=== PATIENT | male | born 1955 | race Caucasian/White ===

== ENCOUNTER 2023-09-20 16:14 | Inpatient (IN) | payer OTHER ==
[2023-09-20 17:34] LABS: Absolute Lymphocytes (CBC) 0.8 K/uL (0.7-4.9); Hematocrit 42.7 % (39.6-49.0); Lymphocytes % 11.4 % (15.3-44.8); MCV 88.1 fL (80-100); MPV 9.1 fL (7.6-11.3); Platelets 149 thou/uL (152-406); RBC Red Blood Cell Count 4.85 M/uL (4.33-5.43)
[2023-09-20 17:38] LABS: Protime INR 0.99
[2023-09-20] MEDS ORDERED: ACETAMINOPHEN 325 MG TABLET ONE (17:38)
[2023-09-20] MEDS ORDERED: LEVALBUTEROL 1.25 MG/3 ML NEB ONE (17:38)
[2023-09-20] MEDS ORDERED: LEVETIRACETAM 500 MG/5 ML VIAL IV ONE (17:38)
[2023-09-20] MEDS ORDERED: NA CHLORIDE 0.9% 1,000 ML ONE ×3 (17:39→20:39)
[2023-09-20] MEDS ORDERED: NA CHLORIDE 0.9% 100 ML ONE (17:39)
[2023-09-20 17:49] LABS: Albumin 3.4 g/dL (3.4-5.0); Bilirubin Total 0.6 mg/dL (0.2-1.0); Potassium 3.3 mEq/L (3.5-5.1); Protein, Total 7.3 g/dL (6.4-8.2)
[2023-09-20 17:51] LABS: SARS-CoV-2 Antigen Rapid Res Positive (Negative)
--- NOTE | 2023-09-20 18:00 | ER ---
Nurse's Notes [facility] Name: Peter Sewell Age: 68 yrs Sex: Male : 1955 Arrival Date: 09/20/2023 Time: 16:14 Bed 6 Private MD: Diagnosis: SARS-associated coronavirus as the cause of diseases classified elsewhere;COPD/ Chronic obstructive pulmonary disease with (acute) exacerbation;Altered mental status, unspecified Presentation: 09/20 16:41 Chief complaint: EMS states: toned out for possible seizure. Reports that patient me1 called EMS himself stating that he thought he had a seizure. No seizure activity noted by EMS but they do report confusion. Report some sob with pushed speech, o2 sats 88% up to mid 90s with o2 at 2 Lpm via nc. Reports diminished breath sounds bilaterally. Smoker. 20 g PIV to LAC with about 200 ml of NS administered. Coronavirus screen: Vaccine status: Patient reports being unvaccinated. Ebola Screen: No symptoms or risks identified at this time. Initial Sepsis Screen: Does the patient meet any 2 criteria? No. Patient's initial sepsis screen is negative. Does the patient have a suspected source of infection? Yes: Productive cough/pneumonia. Risk Assessment: Do you want to hurt yourself or someone else? Patient reports no desire to harm self or others. Onset of symptoms was September 20, 2023. 16:41 Method Of Arrival: EMS nv1 16:41 Acuity: NEIL 2 me1 Triage Assessment: 16:49 General: Appears comfortable, unkempt, Behavior is cooperative, appropriate for age, me1 Reports Patient called EMS stating that he thinks he has a seizure. No seizure activity noted by EMS but they reported confusion and SOB. Pain: Complains of pain in back Pain does not radiate. Pain currently is 5 out of 10 on a pain scale. Quality of pain is described as aching, Pain began. Neuro: Level of Consciousness is awake, alert, obeys commands, confused, Oriented to person, situation. Neuro: Reports thinks he had a seizure. . Cardiovascular: Capillary refill < 3 seconds Patient's skin is warm and dry. Respiratory: Airway is patent Respiratory effort is even, labored, Respiratory pattern is regular, tachypnea. Musculoskeletal:. Historical: - Allergies: 16:49 No Known Allergies; me1 - PMHx: 16:49 Chronic obstructive lung disease; Congestive heart failure; Diabetes mellitus; Seizure; me1 - Immunization history:: Adult Immunizations unknown. - Social history:: Smoking status: Patient reports the use of cigarette tobacco products, smokes one pack cigarettes per day. - Family history:: not pertinent. - Hospitalizations: : No recent hospitalization is reported. Screenin:53 [facility] ED Fall Risk Assessment (Adult) History of falling in the last 3 months, me1 including since admission No falls in past 3 months (0 pts) Confusion or Disorientation Yes (5 pts) Intoxicated or Sedated No (0 pts) Impaired Gait Yes (1 pt) Mobility Assist Device Used Yes (1 pt) Altered Elimination No (0 pt) Score/Fall Risk Level 3 or more points = High Risk Oriented to surroundings, Maintained a safe environment, Educated pt \T\ family on fall prevention, incl call for assistance when getting out of bed, Provided non-skid footwear, Hourly rounding (assess needs \T\ fall precautionary measures) done, Used ambulatory aids as needed (educated on \T\ assisted with), Used gait belt as appropriate. Abuse screen: Denies threats or abuse. Nutritional screening: No deficits noted. Tuberculosis screening: No symptoms or risk factors identified. Assessment: 16:53 General: See triage assessment. . me1 19:30 Reassessment: Pt blood pressure 78/53, provider ordered. Administer 25G albumin and 1 vc1 liter bolus NS. 20:45 General: Notified hospitalist that patients blood pressure has dropped back down to vc1 72/53 Orders are to administer Normal Saline 500cc at 500cc per hour and reevaluate.. 21:08 Reassessment: Patient appears in no apparent distress at this time. Patient and/or km8 family updated on plan of care and expected duration. Pain level reassessed. Patient is alert, oriented x 3, equal unlabored respirations, skin warm/dry/pink. 21:30 General: Asked hospitalist to come see patient at bedside. Pt blood pressure 77/46. vc1 Will administer midodrine and reassess.. 22:00 General: See [facility] for charting. vc1 22:00 General: sonIsidoro, [id number]. vc1 Vital Signs: 16:41 BP 126 / 81; Pulse 93; Resp 24; Temp 99.9; Pulse Ox 95% on R/A; Weight 88.9 kg; Pain me1 6/10; 17:15 BP 116 / 81; Pulse 67; Resp 16; Pulse Ox 96% on 2 lpm NC; me1 18:00 BP 101 / 79; Pulse 65; Resp 22; Pulse Ox 99% on 2 lpm NC; me1 19:00 BP 94 / 56; Pulse 62; Resp 20; Pulse Ox 90% on R/A; vc1 19:30 BP 78 / 53; Pulse 62; Resp 22; Pulse Ox 96% on 2 lpm NC; vc1 20:00 BP 97 / 84; Pulse 60; Resp 21; Pulse Ox 94% on 2 lpm NC; vc1 20:45 BP 88 / 56; Pulse 55; Resp 19; Pulse Ox 94% on 2 lpm NC; vc1 21:00 BP 87 / 52; Pulse 57; Resp 16; Pulse Ox 98% on 2 lpm NC; vc1 21:30 BP 77 / 46; Pulse 60; Resp 22; Pulse Ox 96% on 2 lpm NC; vc1 16:41 Pain Scale: Adult nv1 ED Course: 16:30 Patient arrived in ED. ap3 16:38 Marycruz Juarez, KEVEN is Primary Nurse. me1 16:38 Aurelio Rosenberg MD is Attending Physician. rn 16:49 Triage completed. me1 16:49 Arm band placed on Patient placed in an exam room. me1 16:53 Patient has correct armband on for positive identification. Bed in low position. Call nv1 light in reach. Side rails up X2. Provided Education on: POC. Verbalized understanding. . 16:53 No provider procedures requiring assistance completed. Maintain EMS IV. Dressing me1 intact. Good blood return noted. Site clean \T\ dry. Gauge \T\ site: 20g LAC. Patient confused and pulled IV out shortly after admission. Patient maintains SpO2 saturation greater than 95% on room air. 17:05 Chest Single View XRAY In Process Unspecified. EDMS 17:31 Inserted saline lock: 22 gauge in right forearm, using aseptic technique. me1 17:34 BNP Sent. me1 17:34 SARS RAPID Sent. me1 17:34 Flu Sent. me1 17:34 CBC with Diff Sent. me1 17:34 Blood Culture Adult (2) Sent. me1 17:34 CMP Sent. me1 17:34 Lactate w/ 2H reflex if indic. Sent. me1 17:34 Protime (+inr) Sent. me1 17:34 Ptt, Activated Sent. me1 17:58 Miguel Boyd MD is Hospitalizing Provider. rn 20:11 Accessed Midline 20g 8cm Left upper arm. vc1 22:00 Patient admitted, IV remains in place. vc1 Administered Medications: 17:48 Drug: Levalbuterol Inhalation 1.25 mg Inhalation once Route: Inhalation; me1 18:00 Follow up: Response: No adverse reaction me1 18:08 Follow up: Response: No adverse reaction; Wheezing diminished me1 17:48 Drug: Keppra IV 1000 mg IV at calculated rate once Route: IV; Rate: calculated rate; [facility] [place]: right forearm; 18:08 Follow up: Response: No adverse reaction; IV Status: Completed infusion me1 17:48 Drug: Acetaminophen PO 650 mg PO once Route: PO; me1 18:22 Follow up: Response: No adverse reaction me1 17:48 Drug: NS 0.9% IV 1000 ml IV at 1000 ml once Route: IV; Rate: 1000 ml; Site: right me1 forearm; 18:02 Drug: LevaQUIN IVPB 750 mg IVPB once Route: IVPB; Site: right forearm; me1 19:02 Follow up: IV Status: Completed infusion; IV Intake: 100ml vc1 19:40 Drug: Albumin IVPB 12.5 grams 50 ml IVPB once; (Note: albumin 25% concentration) vc1 Volume: 50 ml; Route: IVPB; Site: right forearm; 21:00 Follow up: IV Status: Completed infusion; IV Intake: 25ml vc1 19:40 Drug: NS 0.9% IV 1000 ml IV at 1 bolus Per protocol; 1000 mL bolus Route: IV; Rate: 1 vc1 bolus; Site: right forearm; 20:40 Follow up: IV Status: Completed infusion; IV Intake: 1000ml vc1 20:00 Drug: Albumin IVPB 12.5 grams 50 ml IVPB once; (Note: albumin 25% concentration) vc1 Volume: 50 ml; Route: IVPB; Site: right forearm; 20:20 Follow up: IV Status: Completed infusion; IV Intake: 25ml vc1 20:47 Drug: NS 0.9% IV 500 ml IV at 500 ml/hr once Route: IV; Rate: 500 ml/hr; Site: left vc1 upper arm; 21:15 Follow up: IV Status: Completed infusion; IV Intake: 500ml vc1 Medication: 16:53 VIS not applicable for this client. me1 Intake: 19:02 IV: 100ml; Total: 100ml. vc1 20:20 IV: 25ml; Total: 125ml. vc1 20:40 IV: 1000ml; Total: 1125ml. vc1 21:00 IV: 25ml; Total: 1150ml. vc1 21:15 IV: 500ml; Total: 1650ml. vc1 Outcome: 17:59 Decision to Hospitalize by Provider. rn 22:00 Admitted to ER Hold. Please see [facility] for further documentation. vc1 22:00 Condition: stable 22:00 Instructed on the need for admit, 09/21 16:54 Patient left the ED. Signatures: Dispatcher [employer] EDMS Aurelio Rosenberg MD MD rn Baxter, Heather, RN RN Deja Scott RN RN chace3 Randa Birmingham RN RN 1 Marycruz Juarez RN RN nv1 Jeanine Kent RN RN km8 Corrections: (The following items were deleted from the chart) 09/20 23:07 21:45 General: Notified hospitalist that patients blood pressure has dropped back down vc1 to 77/46. Orders are to administer Normal Saline 500cc at 500cc per hour and reevaluate.. vc1 23:10 20:45 General: Notified hospitalist that patients blood pressure has dropped back down vc1 to 77/46. Orders are to administer Normal Saline 500cc at 500cc per hour and reevaluate.. vc1 23:17 21:00 BP 87 / 52; Pulse 57bpm; Resp 16bpm; Pulse Ox 98% RA; km8 vc1
--- NOTE | 2023-09-20 18:00 | EDPHYS ---
Physician Documentation [facility] Name: Peter Sewell Age: 68 yrs Sex: Male : 1955 Arrival Date: 09/20/2023 Time: 16:14 Bed 6 Private MD: ED Physician Aurelio Rosenberg HPI: 09/20 16:57 This 68 yrs old Male presents to ER via EMS with complaints of AMS, possible seizure. rn 16:57 The patient presents with confusion, disorientation. Onset: The symptoms/episode rn began/occurred at an unknown time. Possible causes: seizure. Associated signs and symptoms: Pertinent positives: confusion, Pertinent negatives: abdominal pain, chest pain. Current symptoms: In the emergency department the patient's symptoms have improved. It is unknown whether or not the patient has had similar symptoms in the past. The patient has not recently seen a physician. EMS brought patient in for possible seizure, no witnessed seizure but patient states has seizure disorder. Patient states has been feeling sick for the last 2 or 3 days with cough and mild shortness of breath. States takes Keppra but just recently started it. No traumatic complaints or acute injuries. Patient not oriented to time. When arrived here patient pulled out IV, walked to the out of the room and urinated in the hallway.. Historical: - Allergies: 16:49 No Known Allergies; me1 - PMHx: 16:49 Chronic obstructive lung disease; Congestive heart failure; Diabetes mellitus; Seizure; me1 - Immunization history:: Adult Immunizations unknown. - Social history:: Smoking status: Patient reports the use of cigarette tobacco products, smokes one pack cigarettes per day. - Family history:: not pertinent. - Hospitalizations: : No recent hospitalization is reported. ROS: 16:57 Constitutional: Positive for fever ENT: Negative for injury, pain, and discharge, Neck: rn Negative for injury, pain, and swelling, Cardiovascular: Negative for chest pain, palpitations, and edema, Respiratory: Positive for cough and shortness of breath Abdomen/GI: Negative for abdominal pain, nausea, vomiting, diarrhea, and constipation, MS/Extremity: Negative for injury and deformity, Skin: Negative for injury, rash, and discoloration, Neuro: Positive for seizure and generalized weakness Exam: 16:57 Constitutional: This is a well developed, well nourished patient who is awake, rn confused, no acute distress Head/Face: Normocephalic, atraumatic. ENT: Dry mucous membranes, no oral trauma noted Cardiovascular: Regular rate and rhythm. No pulse deficits. Respiratory: Mild tachypnea, faint expiratory wheezing, crackles bilaterally Abdomen/GI: Soft, non-tender MS/ Extremity: Pulses equal, no cyanosis. Neurovascular intact. Full, normal range of motion. Equal circumference. Neuro: Awake and alert, GCS 15, oriented to person, place, not time. When asked the year patient gives me his phone number.. Cranial nerves II-XII grossly intact. Motor strength 4/5 in all extremities. Sensory grossly intact. Cerebellar exam normal. Vital Signs: 16:41 BP 126 / 81; Pulse 93; Resp 24; Temp 99.9; Pulse Ox 95% on R/A; Weight 88.9 kg; Pain me1 6/10; 17:15 BP 116 / 81; Pulse 67; Resp 16; Pulse Ox 96% on 2 lpm NC; me1 18:00 BP 101 / 79; Pulse 65; Resp 22; Pulse Ox 99% on 2 lpm NC; me1 19:00 BP 94 / 56; Pulse 62; Resp 20; Pulse Ox 90% on R/A; vc1 19:30 BP 78 / 53; Pulse 62; Resp 22; Pulse Ox 96% on 2 lpm NC; vc1 20:00 BP 97 / 84; Pulse 60; Resp 21; Pulse Ox 94% on 2 lpm NC; vc1 20:45 BP 88 / 56; Pulse 55; Resp 19; Pulse Ox 94% on 2 lpm NC; vc1 21:00 BP 87 / 52; Pulse 57; Resp 16; Pulse Ox 98% on 2 lpm NC; vc1 21:30 BP 77 / 46; Pulse 60; Resp 22; Pulse Ox 96% on 2 lpm NC; vc1 16:41 Pain Scale: Adult me1 MDM: 16:38 Patient medically screened. rn 17:57 Differential Diagnosis: electrolyte abnormality, hypoglycemia, pneumonia, sepsis, rn volume depletion, COVID, flu. Data reviewed: vital signs, nurses notes, lab test result(s), radiologic studies, plain films, and as a result, I will admit patient. Consideration of Admission/Observation Patient was admitted/placed on observation. Escalation of care including admission/observation considered. Independent interpretation of the following test(s) in the Emergency Department X-Ray: My interpretation is Chest x-ray images negative for focal pneumonia or pneumothorax per my interpretation. Counseling: I had a detailed discussion with the patient and/or guardian regarding the historical points, exam findings, and any diagnostic results supporting the discharge/admit diagnosis, lab results, radiology results, the need for further work-up and treatment in the hospital. Response to treatment: the patient's symptoms have mildly improved after treatment, and as a result, I will admit patient. ED course: Son is here, gives a different story, reports sick for 3 days and confusion for 3 days, has not witnessed a seizure at home. Patient recently moved here and is living alone. Still altered. Elevated lactate but COVID-positive so viral source. Will admit to hospitalist service for further care. 09/20 16:49 Order name: Blood Culture Adult (2) 09/20 16:49 Order name: CBC with Diff; Complete Time: 17:37 09/20 16:49 Order name: CMP; Complete Time: 17:51 09/20 16:49 Order name: Lactate w/ 2H reflex if indic.; Complete Time: 17:52 09/20 16:49 Order name: Protime (+inr); Complete Time: 17:40 09/20 16:49 Order name: Ptt, Activated; Complete Time: 17:40 09/20 16:49 Order name: Flu; Complete Time: 19:45 09/20 16:49 Order name: SARS RAPID; Complete Time: 17:52 09/20 17:00 Order name: BNP; Complete Time: 19:45 09/20 19:50 Order name: Basic Metabolic Panel EDTX 09/20 19:50 Order name: Basic Metabolic Panel EDTX 09/20 19:50 Order name: CBC with Automated Diff EDTX 09/20 19:50 Order name: CBC with Automated Diff EDTX 09/20 21:17 Order name: Lactate Sepsis 2 HR Follow-up; Complete Time: 21:55 EDTX 09/20 22:49 Order name: ABG Arterial Blood Gas EDTX 09/21 08:09 Order name: Glucose, Ancillary Testing EDTX 09/21 12:43 Order name: Glucose, Ancillary Testing EDTX 09/20 16:49 Order name: Chest Single View XRAY; Complete Time: 19:45 09/20 16:49 Order name: EKG; Complete Time: 16:50 rn 09/20 16:49 Order name: Accucheck; Complete Time: 20:39 rn 09/20 16:49 Order name: Cardiac monitoring; Complete Time: 17:48 rn 09/20 16:49 Order name: EKG - Nurse/Tech; Complete Time: 18:22 rn 09/20 16:49 Order name: IV Saline Lock - Large Bore; Complete Time: 17:34 rn 09/20 16:49 Order name: Labs collected and sent; Complete Time: 17:34 rn 09/20 16:49 Order name: O2 Per Protocol; Complete Time: 17:34 rn 09/20 16:49 Order name: O2 Sat Monitoring; Complete Time: 17:34 rn 09/20 16:49 Order name: Vital Signs; Complete Time: 17:34 rn Administered Medications: 17:48 Drug: Levalbuterol Inhalation 1.25 mg Inhalation once Route: Inhalation; me1 18:00 Follow up: Response: No adverse reaction me1 18:08 Follow up: Response: No adverse reaction; Wheezing diminished me1 17:48 Drug: Keppra IV 1000 mg IV at calculated rate once Route: IV; Rate: calculated rate; me1 Site: right forearm; 18:08 Follow up: Response: No adverse reaction; IV Status: Completed infusion me1 17:48 Drug: Acetaminophen PO 650 mg PO once Route: PO; me1 18:22 Follow up: Response: No adverse reaction me1 17:48 Drug: NS 0.9% IV 1000 ml IV at 1000 ml once Route: IV; Rate: 1000 ml; Site: right me1 forearm; 18:02 Drug: LevaQUIN IVPB 750 mg IVPB once Route: IVPB; Site: right forearm; me1 19:02 Follow up: IV Status: Completed infusion; IV Intake: 100ml vc1 19:40 Drug: Albumin IVPB 12.5 grams 50 ml IVPB once; (Note: albumin 25% concentration) vc1 Volume: 50 ml; Route: IVPB; Site: right forearm; 21:00 Follow up: IV Status: Completed infusion; IV Intake: 25ml vc1 19:40 Drug: NS 0.9% IV 1000 ml IV at 1 bolus Per protocol; 1000 mL bolus Route: IV; Rate: 1 vc1 bolus; Site: right forearm; 20:40 Follow up: IV Status: Completed infusion; IV Intake: 1000ml vc1 20:00 Drug: Albumin IVPB 12.5 grams 50 ml IVPB once; (Note: albumin 25% concentration) vc1 Volume: 50 ml; Route: IVPB; Site: right forearm; 20:20 Follow up: IV Status: Completed infusion; IV Intake: 25ml vc1 20:47 Drug: NS 0.9% IV 500 ml IV at 500 ml/hr once Route: IV; Rate: 500 ml/hr; Site: left vc1 upper arm; 21:15 Follow up: IV Status: Completed infusion; IV Intake: 500ml vc1 Disposition Summary: 09/20/23 17:59 Hospitalization Ordered Notes: Hospitalization Status: Inpatient Admission rn Provider: Miguel Boyd rn Condition: Stable rn Problem: new rn Symptoms: have improved rn Bed/Room Type: Standard rn Location: Telemetry/MedSurg (Inpatient)(09/21/23 12:47) sp Room Assignment: [facility](09/21/23 14:22) ja Diagnosis - SARS-associated coronavirus as the cause of diseases classified elsewhere rn - COPD/ Chronic obstructive pulmonary disease with (acute) exacerbation rn - Altered mental status, unspecified rn Forms: - Medication Reconciliation Form rn - SBAR form rn - Leadership Thank You Letter rn Signatures: Dispatcher [employer] EDMindy Samuels Roman, MD MD rn Bryson, James RN RN [id number] Brock Smith RN RN ja1 Randa Birmingham RN RN Yaz Macdonald PA-C PA-C [id number] Marycruz Juarez, RN RN me1 Corrections: (The following items were deleted from the chart) 19:21 17:59 Telemetry/MedSurg (Inpatient) rn jake 19:21 17:59 rn jake 09/21 12:47 12 19:21 [facility] ER HOLD jb4 sp 09/21 12:47 1222 19:21 ERHOLD- jbMarianne sp 09/21 14:22 12:47 404 sp ja1
[2023-09-20] MEDS ORDERED: Levofloxacin 750mg IV 750 MG/150 ML BAG IV ONE (18:01)
--- NOTE | 2023-09-20 18:30 | RAD REPORT ---
[facility] 5[facility]03 pm CLINICAL HISTORY: Cough;Dyspnea COMPARISON: No comparisons TECHNIQUE: Portable AP view of the chest. FINDINGS: The lungs are clear. No pneumothorax or effusion. The cardiomediastinal contours are unre markable. IMPRESSION: No acute cardiopulmonary process.
[2023-09-20] MEDS ORDERED: ACETAMINOPHEN 325 MG TABLET PO PRN (19:45)
[2023-09-20] MEDS ORDERED: ONDANSETRON 4 MG/2 ML VIAL IV PRN (19:45)
--- NOTE | 2023-09-20 19:45 | P.HP ---
Certification for Inpatient Patient admitted to: Inpatient With expected LOS: >2 Midnights Practitioner: I am a practitioner with admitting privileges, knowledge of patient current condition, hospital course, and medical plan of care. Services: Services provided to patient in accordance with Admission requirements found in Title 42 Section 412.3 of the Code of Federal Regulations Patient History Date of Service: 09/21/23 Reason for admission: COVID-19 disease, volume depletion, acute kidney injury,. History of Present Illness: Six 8-year-old male patient who came to the emergency room with complaint of lethargy weakness and was found to have multiple issues. He had lab work that revealed COVID-19 disease positive state and he also had lab work that showed acute kidney injury, low sodium and low blood pressure. There was also report of seizures prior to coming to the ED. He was given IV fluid bolus with albumin and isotonic saline, Keppra and he was put in for inpatient care. He denied overt episode of chest pain, fever, chills, nausea, vomiting, diarrhea. He did have occasions of shortness of breath. His initial lab also revealed elevated troponin however this was not trending up. He was admitted for inpatient management. Allergies No Known Allergies Allergy (Unverified 09/20/23 22:51) Review of Systems General: Weakness, Malaise Eyes: Unremarkable ENT: Unremarkable Respiratory: Cough, Shortness of Breath Cardiovascular: Unremarkable Gastrointestinal: Unremarkable Genitourinary: Unremarkable Musculoskeletal: Unremarkable Physical Examination - Physical Exam General: Alert, Oriented x3 HEENT: Atraumatic, Normocephalic Neck: Supple Respiratory: Diminished Cardiovascular: Regular rate/rhythm, Normal S1 S2 Gastrointestinal: Hypoactive Musculoskeletal: No swelling Neurological: Normal speech - Studies Laboratory Data (last 24 hrs) 09/20/23 09/20/23 09/20/23 17:20 17:20 17:20 WBC 7.30 Hgb 14.0 Hct 42.7 Plt Count 149 L PT 10.9 INR 0.99 APTT 31.6 Sodium 131 L Potassium 3.3 L BUN 22 H Creatinine 1.68 H Glucose 98 Total Bilirubin 0.6 AST 21 ALT 29 Alkaline Phosphatase 71 Microbiology Data (last 24 hrs): 09/20/23 17:28 Nasopharnyx Influenza Type A Antigen Screen - Final 09/20/23 17:28 Nasopharnyx Influenza Type B Antigen Screen - Final Assessment and Plan - Plan COVID-19 disease: Concerning as patient has x-ray findings and lab confirmation. Will continue isotonic fluid administration and as needed basis. Will continue with dexamethasone for inflammation support. Will have as needed Tylenol and blood. Will continue vitamin C for additional benefit Low blood pressure/hypertension: Patient has significant low systolic blood pressure and has had IV fluid and albumin dose. Will continue midodrine for blood pressure support. Follow symptomatology monitor vital signs per unit protocol. Seizures: Patient had had reported seizure episode prior to coming to the ED. Keppra dose was given. Will follow-up on routine monitoring and if seizure precautions on board. Will continue Keppra pending review by neurologist. Acute kidney injury: Creatinine is elevated at 1.68. IV fluid has been given with albumin. Will follow trend of kidney function. Will avoid nephrotoxins. Hyponatremia: Sodium is low at 133. Will replete and follow levels on daily labs. Hypokalemia: Potassium is low at 3.3. Will replete and follow labs on the daily lab draw. Prophylaxis: Lovenox for DVT prophylaxis CODE STATUS: Full code Disposition: We will treat his COVID-19 disease and he will be discharged once is deemed clinically stable - Advance Directives Does patient have a Living Will: No Does patient have a Durable POA for Healthcare: No
[2023-09-20] MEDS ORDERED: ALBUMIN HUMAN 25% 50 ML IV ONE ×2 (19:46→20:03)
[2023-09-20] MEDS ORDERED: ALBUMIN HUM 5% 0 ML IV ONE (19:47)
[2023-09-20] MEDS ORDERED: MIDODRINE HCL 5 MG TABLET ONE (22:31)
[2023-09-20] MEDS: MIDODRINE HCL 5 MG TABLET PO SCH (22:40)
[2023-09-20 22:49] LABS: Blood Gas Oxyhemoglobin 90.8 % (94-97); Blood O2 Saturation 94.4 % (92-98.5)
[2023-09-20 23:04] VITALS: BMI 25.7
[2023-09-21 04:40] LABS: Absolute Lymphocytes (CBC) 1.3 K/uL (0.7-4.9); Hematocrit 36.5 % (39.6-49.0); Lymphocytes % 20.9 % (15.3-44.8); MCV 87.2 fL (80-100); MPV 9.3 fL (7.6-11.3); Platelets 117 thou/uL (152-406); Potassium 3.7 mEq/L (3.5-5.1); RBC Red Blood Cell Count 4.19 M/uL (4.33-5.43)
[2023-09-21] MEDS ORDERED: POTASSIUM 25 MEQ EFFERV TAB PO ONE (05:34)
[2023-09-21] MEDS ORDERED: POTASSIUM 25 MEQ EFFERV TAB ONE (05:37)
[2023-09-21] MEDS ORDERED: levETIRAcetam 750 MG in NA CHLORIDE 0.9% 100 ML IV SCH (06:00)
[2023-09-21] MEDS ORDERED: NA CHLORIDE 0.9% 100 ML ONE (06:30)
[2023-09-21] MEDS ORDERED: LEVETIRACETAM 500 MG/5 ML VIAL IV ONE (06:30)
[2023-09-21] MEDS ORDERED: dexAMETHasone 10 MG/ML VIAL IV SCH (09:00)
[2023-09-21] MEDS: ENOXAPARIN 40 MG/0.4 ML SQ SCH (09:00)
[2023-09-21] MEDS: dexAMETHasone 4 MG/ML VIAL IV SCH (09:00)
[2023-09-21] MEDS: ASCORBIC ACID 500 MG TABLET PO SCH (09:00)
[2023-09-21] MEDS: VITAMIN D 1000 UNIT TAB PO SCH (09:00)
[2023-09-21] MEDS: ZINC SULFATE 220 MG CAP PO SCH (09:00)
[2023-09-21] MEDS: MIDODRINE HCL 5 MG TABLET PO SCH ×3 (09:00→21:00)
[2023-09-21] MEDS ORDERED: VITAMIN D 1000 UNIT TAB ONE (09:15)
[2023-09-21] MEDS ORDERED: ZINC SULFATE 220 MG CAP ONE (09:15)
[2023-09-21] MEDS ORDERED: dexAMETHasone 4 MG TAB ONE (09:15)
[2023-09-21] MEDS ORDERED: ASCORBIC ACID 500 MG TABLET ONE (09:15)
[2023-09-21] MEDS ORDERED: dexAMETHasone 4 MG/ML VIAL ONE (11:43)
[2023-09-21] MEDS: AZITHROMYCIN IV 500 MG in NA CHLORIDE 0.9% 250 ML IVPB SCH (13:00)
[2023-09-21] MEDS: CEFTRIAXONE 1,000 MG in NA CHLORIDE 0.9% 50 ML IVPB SCH (13:00)
[2023-09-21] MEDS ORDERED: NA CHLORIDE 0.9% 50 ML ONE (13:59)
[2023-09-21] MEDS ORDERED: CEFTRIAXONE 1000 MG/VIAL ONE (13:59)
--- NOTE | 2023-09-21 14:02 | P.PN ---
Subjective Date of Service: 09/21/23 Chief Complaint: COVID-19 disease, volume depletion, acute kidney injury,. Pt is resting comfortably in bed. Pt denies any chest pain. Will change levaquin to rocephin and azithro due to poor renal function. He is using 2L BNC. No acute event overnight. Review of Systems Unremarkable General: Unremarkable Eyes: Unremarkable ENT: Unremarkable Respiratory: Shortness of Breath Cardiovascular: Unremarkable Gastrointestinal: Unremarkable Genitourinary: Unremarkable Musculoskeletal: Unremarkable Integumentary: Unremarkable Neurological: Unremarkable Lymphatics: Unremarkable Physical Examination - Vital Signs Temperature: 98.8 F Blood Pressure: 121/83 Pulse: 89 Respirations: 15 Pulse Ox (%): 99 - Physical Exam General: Alert, In no apparent distress, Oriented x3 HEENT: Atraumatic, Normocephalic, PERRLA Neck: Supple, 2+ carotid pulse no bruit Respiratory: Normal air movement, Diminished Cardiovascular: No edema, Normal pulses, Regular rate/rhythm, Normal S1 S2 Capillary refill: <2 Seconds Gastrointestinal: Normal bowel sounds, Soft and benign, Non-distended Musculoskeletal: No clubbing, No swelling Integumentary: No rashes, No breakdown Neurological: Normal gait, Normal speech, Normal strength at 5/5 x4 extr Lymphatics: No axilla or inguinal lymphadenopathy - Studies Laboratory Data (last 24 hrs) 09/20/23 09/20/23 09/20/23 17:20 17:20 17:20 WBC 7.30 Hgb 14.0 Hct 42.7 Plt Count 149 L PT 10.9 INR 0.99 APTT 31.6 Sodium 131 L Potassium 3.3 L BUN 22 H Creatinine 1.68 H Glucose 98 Total Bilirubin 0.6 AST 21 ALT 29 Alkaline Phosphatase 71 Microbiology Data (last 24 hrs): 09/20/23 17:28 Nasopharnyx Influenza Type A Antigen Screen - Final 09/20/23 17:28 Nasopharnyx Influenza Type B Antigen Screen - Final Assessment And Plan - Plan COVID-19 disease: Will continue enhanced respiratory precaution, decadron, vitamin C, vitamin D, zinc oxide and prn oxygen. Continue prn tylenol. Low blood pressure/hypertension: Will continue NS IVF and midodrine. s/p Albumin. Seizures: Will continue keppra and seizure precaution. Consulted Neurology. Acute kidney injury: Creatinine is elevated at 1.96 <- 1.68. Will continue IVF, avoud nephrotoxina nd monitor renal function. Hyponatremia: Sodium is low at 133. Will replete and monitor. Hypokalemia: Potassium is low at 3.7 <- 3.3. Will replete and monitor. DVT Prophylaxis: Lovenox CODE STATUS: Full code Disposition: Pending hospital course. Discharge Plan: Home Plan to discharge in: 48 Hours - Code Status/Comfort Care Code Status Assessed: Yes
[2023-09-21] MEDS: levETIRAcetam 750 MG in NA CHLORIDE 0.9% 100 ML IV SCH (17:29)
[2023-09-21] MEDS ORDERED: Levofloxacin500mg IV 500 MG/100 ML BAG IV SCH (20:00)
[2023-09-22] MEDS: levETIRAcetam 750 MG in NA CHLORIDE 0.9% 100 ML IV SCH (06:00)
[2023-09-22] MEDS: AZITHROMYCIN IV 500 MG in NA CHLORIDE 0.9% 250 ML IVPB SCH (07:31)
[2023-09-22] MEDS: CEFTRIAXONE 1,000 MG in NA CHLORIDE 0.9% 50 ML IVPB SCH (07:32)
[2023-09-22] MEDS: ENOXAPARIN 40 MG/0.4 ML SQ SCH (07:32)
[2023-09-22] MEDS: dexAMETHasone 4 MG/ML VIAL IV SCH (07:33)
[2023-09-22] MEDS: VITAMIN D 1000 UNIT TAB PO SCH (07:33)
[2023-09-22] MEDS: ASCORBIC ACID 500 MG TABLET PO SCH (07:33)
[2023-09-22] MEDS: MIDODRINE HCL 5 MG TABLET PO SCH ×2 (07:34→13:13)
[2023-09-22] MEDS: ZINC SULFATE 220 MG CAP PO SCH (07:34)
[2023-09-22 07:53] LABS: Absolute Lymphocytes (CBC) 1.5 K/uL (0.7-4.9); Hematocrit 38.6 % (39.6-49.0); Lymphocytes % 31.2 % (15.3-44.8); MCV 86.5 fL (80-100); MPV 9.7 fL (7.6-11.3); Platelets 116 thou/uL (152-406); RBC Red Blood Cell Count 4.46 M/uL (4.33-5.43)
[2023-09-22] MEDS ORDERED: levETIRAcetam 750 MG in NA CHLORIDE 0.9% 100 ML IV SCH (08:00)
[2023-09-22 08:16] LABS: Potassium 3.4 mEq/L (3.5-5.1)
[2023-09-22 09:31] VITALS: O2SAT 95
[2023-09-22] MEDS ORDERED: POTASSIUM CL SA 10 MEQ TAB PO ONE (10:00)
--- NOTE | 2023-09-22 11:55 | P.PN ---
Subjective Date of Service: 09/22/23 Chief Complaint: COVID-19 disease, volume depletion, acute kidney injury,. Pt is resting comfortably in bed. Pt denies any chest pain. Will continue rocephin and azithro. He is using 2L BNC. No acute event overnight. Review of Systems Unremarkable General: Unremarkable Eyes: Unremarkable ENT: Unremarkable Respiratory: Unremarkable Cardiovascular: Unremarkable Gastrointestinal: Unremarkable Genitourinary: Unremarkable Musculoskeletal: Unremarkable Integumentary: Unremarkable Neurological: Unremarkable Lymphatics: Unremarkable Physical Examination - Vital Signs Temperature: 98.1 F Blood Pressure: 139/82 Pulse: 76 Respirations: 18 Pulse Ox (%): 95 - Physical Exam General: Alert, In no apparent distress, Oriented x3 HEENT: Atraumatic, Normocephalic, PERRLA Neck: Supple, 2+ carotid pulse no bruit Respiratory: Clear to auscultation bilaterally, Normal air movement Cardiovascular: No edema, Normal pulses, Regular rate/rhythm, Normal S1 S2 Capillary refill: <2 Seconds Gastrointestinal: Normal bowel sounds, Soft and benign, Non-distended Musculoskeletal: No clubbing, No swelling Integumentary: No rashes, No breakdown Neurological: Normal gait, Normal speech, Normal strength at 5/5 x4 extr Lymphatics: No axilla or inguinal lymphadenopathy Assessment And Plan - Plan COVID-19 disease: Will continue enhanced respiratory precaution, decadron, vitamin C, vitamin D, zinc oxide and prn oxygen. Continue prn tylenol. Low blood pressure/hypertension: Will continue NS IVF and midodrine. s/p Albumin. Seizures: Will continue keppra and seizure precaution. Consulted Neurology. Acute kidney injury: Creatinine is elevated at 1.28<- 1.96 <- 1.68. Will continue IVF, avoud nephrotoxin and monitor renal function. Hyponatremia: Sodium is low at 132. Will replete and monitor. Hypokalemia: Potassium is low at 3.4 <- 3.7 <- 3.3. Will replete and monitor. DVT Prophylaxis: Lovenox CODE STATUS: Full code Disposition: Pending hospital course.
[2023-09-22] MEDS ORDERED: ERGOCALCIFEROL 50 MCG PO SCH (12:00)
[2023-09-22] MEDS: GABAPENTIN 400 MG CAP PO SCH ×2 (13:13→15:57)
--- NOTE | 2023-09-22 14:24 | P.DS ---
Admission Date: 09/20/23 Discharge Date: 09/22/23 Disposition: ROUTINE DISCHARGE Discharge Condition: GOOD Reason for Admission: COVID-19 disease, volume depletion, acute kidney injury,. Brief History of Present Illness: 68-year-old male patient who came to the emergency room with complaint of lethargy weakness and was found to have multiple issues. He had lab work that revealed COVID-19 disease positive state and he also had lab work that showed acute kidney injury, low sodium and low blood pressure. There was also report of seizures prior to coming to the ED. He was given IV fluid bolus with albumin and isotonic saline, Keppra and he was put in for inpatient care. He denied overt episode of chest pain, fever, chills, nausea, vomiting, diarrhea. He did have occasions of shortness of breath. His initial lab also revealed elevated troponin however this was not trending up. He was admitted for inpatient management. Hospital Course: Pt is a 68-year-old male who presented with lethargy and weakness. on admission, lab studies showed positive COVID 19, acute kidney injury, low sodium and low blood pressure. There was also report of seizures prior to coming to the ED. He was given IV fluid bolus with albumin, isotonic saline, and Keppra. We admitted pt for treatment of Seizure, pneumonia and COVID. We gave iv decadron, vitamin C, vitamin D, zinc sulfate, rocephin and azithro. His symptoms resolved and pt requested to be discharged. He did not require any oxygen during this admission. He was in NAD prior to this admission. Vital Signs/Physical Exam: Temp Pulse Resp BP Pulse Ox 98.1 F 76 18 139/82 95 09/22/23 11:58 09/22/23 11:58 09/22/23 11:58 09/22/23 11:58 09/22/23 11:58 Laboratory Data at Discharge: WBC 4.90 thou/uL (4.3-10.9) 09/22/23 07:25 Hgb 13.1 g/dL (13.6-17.9) L 09/22/23 07:25 Hct 38.6 % (39.6-49.0) L 09/22/23 07:25 Plt Count 116 thou/uL (152-406) L 09/22/23 07:25 PT 10.9 SECONDS (9.5-12.5) 09/20/23 17:20 INR 0.99 09/20/23 17:20 APTT 31.6 SECONDS (24.3-36.9) 09/20/23 17:20 Sodium 132 mEq/L (136-145) L 09/22/23 07:25 Potassium 3.4 mEq/L (3.5-5.1) L 09/22/23 07:25 BUN 25 mg/dL (7-18) H 09/22/23 07:25 Creatinine 1.28 mg/dL (0.70-1.30) 09/22/23 07:25 Glucose 92 mg/dL (74-106) 09/22/23 07:25 Total Bilirubin 0.6 mg/dL (0.2-1.0) 09/20/23 17:20 AST 21 U/L (15-37) 09/20/23 17:20 ALT 29 U/L (16-61) 09/20/23 17:20 Alkaline Phosphatase 71 U/L (45-117) 09/20/23 17:20 Home Medications: Amitriptyline [Elavil*] 50 mg PO BEDTIME 09/21/23 Aspirin [Aspirin EC 81 MG] 81 mg PO DAILY 09/21/23 Celecoxib [Celebrex] 200 mg PO BID 09/21/23 Cyclobenzaprine [Flexeril*] 5 mg PO BEDTIME 09/21/23 Ergocalciferol (Vitamin D2) [Vitamin D2] 1.25 mg PO SEECOM 09/21/23 Gabapentin 800 mg PO QID 09/21/23 Magnesium Oxide 400 mg PO DAILY 09/21/23 Metformin ER [Glucophage ER*] 5,000 mg PO DAILY 09/21/23 Metoprolol Tartrate 50 mg PO BEDTIME 09/21/23 Rosuvastatin [Crestor*] 10 mg PO BEDTIME 09/21/23 Tamsulosin HCl 0.4 mg PO DAILY 09/21/23 hydroCHLOROthiazide [Hydrochlorothiazide] 25 mg PO DAILY 09/21/23 methocarbamoL [Methocarbamol] 7,500 mg PO TID 09/21/23 Ascorbic Acid [Vitamin C*] 500 mg PO DAILY 12 Days #12 tab 09/22/23 Azithromycin 500 mg PO DAILY 5 Days #5 tab 09/22/23 Cefdinir [Cefdinir*] 300 mg PO BID 5 Days #10 cap 09/22/23 Levetiracetam [Keppra] 750 mg PO BID 30 Days #60 tab 09/22/23 Midodrine HCl [Proamatine*] 5 mg PO TID 30 Days #90 tab 09/22/23 Sodium Chloride Tab [Sodium Chloride*] 1 gm PO BIDWM 2 Days #4 tab 09/22/23 Zinc Sulfate [Zinc Sulfate*] 220 mg PO DAILY 12 Days #12 cap 09/22/23 dexAMETHasone [Decadron] 4 mg PO DAILY 8 Days #8 tab 09/22/23 New Medications: Azithromycin 500 mg PO DAILY 5 Days #5 tab Cefdinir [Cefdinir*] 300 mg PO BID 5 Days #10 cap dexAMETHasone [Decadron] 4 mg PO DAILY 8 Days #8 tab Levetiracetam [Keppra] 750 mg PO BID 30 Days #60 tab Midodrine HCl [Proamatine*] 5 mg PO TID 30 Days #90 tab Sodium Chloride Tab [Sodium Chloride*] 1 gm PO BIDWM 2 Days #4 tab Ascorbic Acid [Vitamin C*] 500 mg PO DAILY 12 Days #12 tab Zinc Sulfate [Zinc Sulfate*] 220 mg PO DAILY 12 Days #12 cap Physician Discharge Instructions: Continue ad cary activity. Take home med as prescribed. Wear mask and self isolate for the next 8 days. Take Keppra 750mg po BID. Do not drive until cleared by Neurologist, Dr. Hoffman. Follow up with Neurology and PCP within 1 - 2 weeks. Comr back to the ER if you notice shortness of breath. Diet: AHA Activity: Ad cary Followup: NONE,NONE [Primary Care Provider] -
[2023-09-22 15:51] VITALS: BP 135/75; TEMP 97.8
[2023-09-22] MEDS ORDERED: SODIUM CHLORIDE 1 GM TAB PO SCH (17:00)
[2023-09-22] MEDS ORDERED: ROSUVASTATIN 10 MG TAB PO SCH (21:00)
[2023-09-23] MEDS ORDERED: TAMSULOSIN 0.4 MG SR CAP PO SCH (09:00)
[2023-09-23] MEDS ORDERED: levETIRAcetam 500 MG TAB PO SCH (09:00)
--- NOTE | 2023-09-26 13:39 | EKG ---
Test Date: 2023-09-20 Test Time: 18:18:38 Staff Nuclear Weapons Officer: MEASUREMENT RESULTS: Intervals: Rate: 64 UT: 196 QRSD: 86 QT: 418 QTc: 431 Sunset: P: 17 UT: 196 QRS: 14 T: 48 INTERPRETIVE STATEMENTS: Normal sinus rhythm Nonspecific T wave abnormality Abnormal ECG No previous ECG available for comparison Electronically Signed On 09-26-23 13:27:32 TIMBER GRADER by Gerardo Vaz
[2023-09-28] MEDS ORDERED: DRISDOL (VITAMIN D=ERGOCALCIFEROL) 50000 UNIT CAP PO SCH (09:00)
== END 2023-09-22 17:52 | disposition home or self-care (01) | DRG 177 ==
LOC: ER 16:14 → ERHOLD 19:45 → 4TH 09-21 14:33
PROVIDERS: ADMIT Internal Medicine Nephrology; ATTEND Hospitalist
DX: U07.1 COVID-19 (principal); J12.82 Pneumonia due to coronavirus disease 2019; E87.1 Hypo-osmolality and hyponatremia; N17.9 Acute kidney failure, unspecified; I10 Essential (primary) hypertension; I95.9 Hypotension, unspecified; R56.9 Unspecified convulsions; E87.6 Hypokalemia; J44.9 Chronic obstructive pulmonary disease, unspecified; I50.9 Heart failure, unspecified; E11.9 Type 2 diabetes mellitus without complications; F17.210 Nicotine dependence, cigarettes, uncomplicated
CPT/HCPCS: 36415; 71045; 80048; 80053; 82805; 82947; 83605; 83880; 84132; 85025; 85610; 85730; 87040; 87804; 87811; 93005; 96365; 96367; 99285; J0696; J1100; J1650; J1953; J7030; J7050; J7614; J8540; P9045; P9047